=== PATIENT | female | born 1955 | race Two or more races ===

== ENCOUNTER 2025-02-13 15:43 | Inpatient (IN) | payer OTHER ==
[~2025-02-13] VITALS: Ht 162.6 cm; Wt 68.0 kg
[2025-02-13] MEDS ORDERED: FAMOTIDINE/PF 20 MG/2 ML VIAL IV ONE (16:30)
[2025-02-13] MEDS ORDERED: 0.9 % SODIUM CHLORIDE 500 ML IV ONE (16:30)
[2025-02-13] MEDS ORDERED: ONDANSETRON HCL 2 MG/ML VIAL IV ONE (16:30)
[2025-02-13] MEDS ORDERED: BENICAR5 MG PO (16:33)
[2025-02-13] MEDS ORDERED: ZESTRIL2.5 MG PO (16:33)
[2025-02-13] MEDS ORDERED: EZALLOR SPRINKLE5 MG PO (16:33)
[2025-02-13 18:57] LABS: BASO % 0.3 % (0.1-1.2); EOS # 0.17 (0.04-0.54); EOS % 0.8 % (0.7-7.0); LYMPH # 2.37 (1.18-3.74); LYMPH % 11.8 % (19.3-53.1); MEAN PLATELET VOLUME 9.50 fl (9.4-12.4); MONO # 1.64 (0.24-0.82); MONO % 8.2 % (4.7-12.5); NEUT # 15.77 (1.56-6.13); NEUT % 78.4 % (34.0-71.1); RED CELL DISTRIBUTION WIDTH 13.4 % (11.6-14.4)
[2025-02-13 19:22] LABS: INR 1.28
[2025-02-13 19:25] LABS: ERYTHROCYTE SEDIMENTATION RATE 41 mm/hr (0-30)
[2025-02-13 19:26] LABS: ALT/SGPT 16.0 U/L (12-78); AST/SGOT 13.0 U/L (15-37); BILIRUBIN TOTAL 0.28 mg/dL (0.3-1.2); BUN CREA RATIO 13.0 (7.0-25.0); CREATININE SERUM 1.72 mg/dL (0.55-1.02); GFR 29.49; GLOBULINA 3.5 G/DL (2.4-3.5); GLUCOSE FASTING 107.0 mg/dL (65-100); OSMOLALITY SERUM 282.0 MOSM/KG (275-295)
[2025-02-13 19:52] LABS: URINE APPEARANCE Clear; URINE BILIRRUBIN Negative (NEGATIVE); URINE BLOOD Negative; URINE COLOR Yellow; URINE GLUCOSE Negative (NEGATIVE); URINE KETONE Negative (NEGATIVE); URINE LEUKOCYTE Negative; URINE NITRATE Negative; URINE PROTEIN 30 (NEGATIVE); URINE UROBILINOGEN 0.2 E.U./dl
[2025-02-13 19:56] LABS: URINE BACTERIA 4.8 uL (0.0-1933); URINE EPITHELIAL CELLS 2.4 uL (0.0-38.8); URINE RBC 2.6 uL (0.0-20.8); URINE WBC 3.2 uL (0.0-23.2)
[2025-02-13] MEDS ORDERED: PIPERACILLIN/TAZOBACTAM SODIUM 2.25 GM VIAL IV ONE (20:15)
[2025-02-13 20:17] LABS: URINE CAST 0.14 uL (0.0-1.40)
[2025-02-13] MEDS ORDERED: MORPHINE SULFATE 4 MG/ML CARTRIDGE IV ONE (22:00)
[2025-02-13] MEDS ORDERED: 0.9 % SODIUM CHLORIDE 1,000 ML IV SCH (23:45)
[2025-02-13] MEDS ORDERED: MORPHINE SULFATE 2 MG/ML SYRINGE IV PRN (23:45)
[2025-02-13] MEDS ORDERED: ACETAMINOPHEN 325 MG TABLET PO PRN (23:45)
[2025-02-13] MEDS ORDERED: ONDANSETRON HCL 4 MG in 0.9 % SODIUM CHLORIDE 50 ML IV PRN (23:45)
[2025-02-14] MEDS ORDERED: PIPERACILLIN/TAZOBACTAM SODIUM 2.25 GM in DEXTROSE 5 % IN WATER 50 ML IV SCH (06:00)
[2025-02-14 06:04] VITALS: BP 138/83; O2SAT 99
[2025-02-14 08:00] VITALS: BP 129/72; O2SAT 99
[2025-02-14] MEDS ORDERED: ACETAMINOPHEN 500 MG GEL..CAP PO PRN (11:15)
[2025-02-14] MEDS ORDERED: PANTOPRAZOLE SODIUM 40 MG/VIAL VIAL IV SCH (12:00)
[2025-02-15 01:22] VITALS: BP 79/52; O2SAT 95
[2025-02-15 01:24] VITALS: BP 83/53
[2025-02-15 02:14] VITALS: BP 91/63; O2SAT 97
[2025-02-15 06:13] LABS: BASO % 0.4 % (0.1-1.2); EOS # 0.35 (0.04-0.54); EOS % 3.4 % (0.7-7.0); LYMPH # 2.59 (1.18-3.74); LYMPH % 24.8 % (19.3-53.1); MEAN PLATELET VOLUME 9.70 fl (9.4-12.4); MONO # 0.94 (0.24-0.82); MONO % 9.0 % (4.7-12.5); NEUT # 6.48 (1.56-6.13); NEUT % 62.1 % (34.0-71.1); RED CELL DISTRIBUTION WIDTH 13.2 % (11.6-14.4)
[2025-02-15 08:00] VITALS: BP 110/71; O2SAT 97
[2025-02-15 16:22] VITALS: BP 109/70; O2SAT 97
[2025-02-16 00:30] VITALS: BP 118/73; O2SAT 97
[2025-02-16 07:00] LABS: ALT/SGPT 13.0 U/L (12-78); AST/SGOT 10.0 U/L (15-37); BILIRUBIN TOTAL 0.27 mg/dL (0.3-1.2); BUN CREA RATIO 8.0 (7.0-25.0); CREATININE SERUM 1.44 mg/dL (0.55-1.02); GFR 36.2; GLOBULINA 2.8 G/DL (2.4-3.5); GLUCOSE FASTING 81.0 mg/dL (65-100); OSMOLALITY SERUM 283.0 MOSM/KG (275-295)
[2025-02-16 09:49] VITALS: BP 94/58; O2SAT 98
== END 2025-02-16 13:52 | disposition home or self-care (01) | DRG 392 ==
LOC: ER 15:43 → SURH 23:48
PROVIDERS: General Practice; Internal Medicine; ADMIT Internal Medicine; ATTEND Internal Medicine
PROC: BW21ZZZ Computerized Tomography (CT Scan) of Abdomen and Pelvis (ICD-10-PCS; principal; 2025-02-13)
DX: K57.92 Diverticulitis of intestine, part unspecified, without perforation or abscess without bleeding (principal); K90.49 Malabsorption due to intolerance, not elsewhere classified; N17.9 Acute kidney failure, unspecified; R11.2 Nausea with vomiting, unspecified; D72.829 Elevated white blood cell count, unspecified